=== PATIENT | male | born 1945 | race Caucasian/White ===

== ENCOUNTER 2019-04-01 09:31 | Emergency (ER) | payer MEDICARE, OTHER ==
[~2019-04-01] VITALS: Ht 172.7 cm; Wt 73.0 kg
[2019-04-01 09:57] VITALS: BP 124/83
--- NOTE | 2019-04-01 09:58 | NUR ---
PT ARRIVED TO ROOM 37 AMBULATORY. PT HERE FOR URIARY PAIN, CONSTANT SINCE NOVEMBER BUT GETTING WORSE. PT STATES THE TIP OF HIS PENIS "STINGS DURING URINATION AND SOMETIMES IT SENDS A SHARP PAIN THROUGH MY TESTICLES." PT AAO X 4, VSS, DRESSED IN GOWN AND ATTACHED TO MONITOR. CALL LIGHT WITHIN REACH, SIDERAILS X [address], PA AT BEDSIDE AND ORDERS RECEIVED.
--- NOTE | 2019-04-01 10:24 | NUR ---
PIV ESTABLISHED BY THIS RN, LABS DRAWN AND SENT. BLADDER SCAN SHOWED 74ML.
[2019-04-01 10:25] LABS: BASOPHILS # (AUTO) 0.02 x10^3/uL (0-0.1); BASOPHILS % (AUTO) 0 % (0-1); EOSINOPHILS # (AUTO) 0.02 x10^3/uL (0-0.4); EOSINOPHILS % (AUTO) 0 % (1-7); LYMPHOCYTES # (AUTO) 0.94 x10^3/uL (1-3.4); LYMPHOCYTES % (AUTO) 12 % (22-44); MD NO; MEAN CORPUSCULAR HEMOGLOBIN 34.2 pg (27.5-34.5); MEAN CORPUSCULAR HGB CONC 34.1 g/dL (33.2-36.2); MEAN CORPUSCULAR VOLUME 100.2 fL (81-97); MEAN PLATELET VOLUME 7.7 fL (7.4-10.4); MONOCYTES # (AUTO) 0.41 x10^3/uL (0.2-0.8); MONOCYTES % (AUTO) 5 % (2-9); NEUTROPHILS # (AUTO) 6.68 x10^3/uL (1.8-6.8); NEUTROPHILS % (AUTO) 83 % (42-75); PLATELET COUNT 236 x10^3/uL (130-400); RED BLOOD COUNT 5.13 x10^6/uL (4.38-5.82); RED CELL DISTRIBUTION WIDTH 13.4 % (9.4-14.8)
[2019-04-01] MEDS ORDERED: HYDROmorphone 1 MG/ML, 1ML INJ IVPush PRN (10:30)
[2019-04-01] MEDS ORDERED: SODIUM CHLORIDE FLUSH 10ML SYR IVF ONE (10:30)
[2019-04-01] MEDS ORDERED: ONDANSETRON 2MG/ML, 2ML IVPush ONE (10:30)
[2019-04-01 10:37] LABS: ALANINE AMINOTRANSFERASE 15 U/L (12-78); ALBUMIN 4.5 g/dL (3.4-5.0); ANION GAP 10 mmol/L (5-15); CALCIUM 9.6 mg/dL (8.5-10.1); CHLORIDE 109 mmol/L (98-107)
[2019-04-01] MEDS ORDERED: HYDROmorphone 1 MG/ML, 1ML VIAL ONE (10:45)
[2019-04-01] MEDS ORDERED: ONDANSETRON 2MG/ML, 2ML ONE (10:45)
[2019-04-01 10:53] LABS: ALKALINE PHOSPHATASE 74 U/L (45-117); CREATININE 1.15 mg/dL (0.7-1.3); TOTAL PROTEIN 8.8 g/dL (6.4-8.2)
[2019-04-01 11:12] LABS: CULTURE INDICATED? YES; MICROSCOPIC INDICATED
--- NOTE | 2019-04-01 11:23 | NUR ---
DR. WINTER AT BEDSIDE FOR EVAL.
--- NOTE | 2019-04-01 11:25 | NUR ---
ALL RESULTS BACK AT THIS TIME, CHART UP FOR RECHECK.
[2019-04-01] MEDS ORDERED: OXYcodone/APAP 5/325MG TABLET PO ONE (12:00)
[2019-04-01] MEDS ORDERED: OXYcodone/APAP 5/325MG TABLET ONE (12:08)
--- NOTE | 2019-04-01 12:26 | NUR ---
Patient/Caregiver given discharge instructions and they have confirmed that they understand the instructions. Patient ambulatory with steady gait.
[2019-04-11] MEDS ORDERED: FINA5TAB4 PO (13:23)
== END 2019-04-01 12:27 | disposition home or self-care (01) ==
LOC: ED 12:10
DX: N21.0 Calculus in bladder (principal)
CPT/HCPCS: 36415; 80053; 81001; 85025; 87086; 96374; 96375; 99284; J1170; J2405